=== PATIENT | female | born 1975 | race Caucasian/White ===

== ENCOUNTER 2019-08-19 12:37 | Outpatient (CLI) | payer SELFPAY ==
--- NOTE | 2019-08-19 12:47 | US_ITS ---
WS: [id number] ULTRASOUND PELVIS TECHNIQUE: Transabdominal and transvaginal. ULTRASOUND PELVIS TECHNIQUE: Transabdominal. CLINICAL INFORMATION: MENORRHAGIA, IRREGULAR MENSES COMPARISON: None. FINDINGS: Technically difficult examination due to uterine depth and position. Images are limited. Uterus Orientation: Retroflexed Size: 7.6 cm x 6.4 cm x 5.2 cm. Heterogeneous uterus with visualized fibroid measuring 1.5 x 1.5 x 1.0 cm Endometrium appears thickened but not well visualized. Adnexa: Right ovary size: 5.2 cm x 3.3 cm x 4.2 cm. Right ovary volume: 37.6 ccm3. Left ovary not seen Free fluid: None. Other findings: None. US/US pelvic with transvaginal IMPRESSION: 1. Difficult examination due to uterine depth and position. Uterus appears ret roflexed. 2. Endometrium appears thickened but difficult to visualize. This can be furth er evaluated with hysteroscopy. 3. Heterogeneous uterus with fibroid measuring 1.5 CM. 4. Right ovarian cyst measuring 1.6 x 2.7 x 2.7 cm. 5. Left ovary not well visualized.
== END 2019-08-19 12:38 | disposition home or self-care (01) ==
LOC: RAD 12:39
PROVIDERS: Family Provider Family Medicine; PCP Nurse Practitioner Family; Visit Provider Nurse Practitioner Family
DX: N92.0 Excessive and frequent menstruation with regular cycle (principal); N92.6 Irregular menstruation, unspecified; D25.9 Leiomyoma of uterus, unspecified; N83.201 Unspecified ovarian cyst, right side
CPT/HCPCS: 76830; 76856

== ENCOUNTER 2019-08-19 13:20 | Emergency (ER) | payer SELFPAY ==
[2019-08-19 13:34] VITALS: BP 173/69; PULSE 108; RESP 18; TEMP 36.9; O2SAT 100; BMI 43.9
--- NOTE | 2019-08-19 13:38 | XR_ITS ---
WS: [id number] SHOULDER RIGHT TECHNIQUE: 3 views of the right shoulder CLINICAL INFORMATION: pain COMPARISON: None. FINDINGS: Hypertrophic changes AC joint. Distal clavicle is intact. Several calcified loose bodies along the do rsal lateral glenohumeral joint and subcoracoid recess. No acute fractures. IMPRESSION: 1. 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 No acute fractures. 2. Several intra-articular calcified loose bodies along the lateral glenohumeral joint and subcoraco id recess.
--- NOTE | 2019-08-19 13:38 | ED_ITS ---
HPI - Extremity Injury (Upper) General: Chief Complaint: Extremity Injury, Upper Stated Complaint: shoulder pain Time Seen by Provider: 08/19/19 13:36 Source: patient Mode of arrival: ambulatory Limitations: no limitations History of Present Illness: HPI narrative: 43-year-old female who states she has had a history of right shoulder pain in the past that was improved with ster oids. She states that starting Monday she started having pain again that is sharp in nature and worse with movement of her arm. Is over the lateral portion of her shoulder. She denies any injuries. States her pain currently is a 3 out of 10. complaint: injury to: right Onset (ago): day(s) Other Extremity Injury: Right: shoulder Other injuries: none Severity: mild Relieving factors: immobilization Exacerbating factors: movement of extremity Review of Systems Const: Denies: fever, chills, body aches or change in appetite Eyes: Denies: blurry vision or eye discomfort ENMT: Denies: throat pain or dental pain Card: Denies: chest pain Resp: Denies: shortness of breath GI: Denies: abdominal pain, nausea, vomiting or diarrhea : Denies: painful urination Musc: Reports: joint pain Skin/Breast: Denies: rash Neuro: Denies: headache Psych: Denies: depression Lonnie/Lymph: Denies: easy bruising All/Imm: Denies: hives PFSH ED PFSH: Family History Grandfather Cancer Colon Social History Smoking and tobacco status: current every day smoker Physical Exam Const: COMMON NORMALS: no apparent distress, oriented x3 and healthy appearing HENMT: COMMON NORMALS: normocephalic and head/scalp atraumatic HEAD & SCALP: normocephalic and atraumatic Eye: COMMON NORMALS: PERRL and EOMs intact bilaterally PUPIL: Yes PERRL Neck/C-Spine: COMMON NORMALS: full ROM and supple Chest: COMMONS NORMALS: inspection of chest normal and palpation of chest normal Resp: COMMON NORMALS: normal respiratory effort, no retractions, no use of accessory muscles and clear to auscultation bilaterally AUSCULTATION: clear to auscultation bilaterally Cardio: COMMON NORMALS: regular rate, regular rhythm and no murmurs RATE: regular rate RHYTHM: regular rhythm GI: COMMON NORMALS: normal to inspection, nondistended, normoactive bowel sounds, soft to palpation, non-tender and no masses PALPATION: Yes soft Extremity: COMMON NORMALS: normal to inspection and full ROM NARRATIVE EX TREMITY EXAM: Full range of motion to right shoulder. She has slight pain of the lateral portion of her shoulder with movement. Distal pulses and sensations are intact Neuro: COMMON NORMALS: oriented x3, moves all extremities and no focal motor deficits Psych: COMMON NORMALS: mental status grossly normal, thought process normal and cooperative THOUGHT PROCESS: normal thought process Skin: COMMON NORMALS: no rashes or lesions noted and no wounds GENERAL SKIN EXAM: no rashes or lesions noted Course Vital Signs: Vital signs: Vital Signs Temperature 98.5 F 08/19/19 13:34 Pulse Rate 108 H 08/19/19 13:34 Respiratory Rate 18 08/19/19 13:34 Blood Pressure 173/69 08/19/19 13:34 Pulse Oximetry 100 08/19/19 13:34 MDM - Extremity Injury (Upper) MDM Narrative: Medical decision making narrative: Patient presents with a right shoulder strain. X-ray shows no fracture. We will place her on Naprosyn and Robaxin. She has no signs of serious injury and is stable for discharge. Imaging Data^: xr shoulder: Attestation: I personally reviewed and interpreted this imaging study as follows: My impression: no acute abnormality Discharge Plan Discharge Patient Disposition: Home, Self-Care Clinical Impression: Sprain of right shoulder Qualifiers: Encounter type: initial encounter Shoulder sprain type: unspecified sprain Qualified Code(s): S43.401A - Unspecified sprain of right shoulder joint, init ial encounter Condition: Stable Prescriptions: New Robaxin-750 750 mg tablet 750 mg PO Q6H Qty: 30 RF: 0 EC-Naprosyn 500 mg tablet,delayed release (DR/EC) 500 mg PO BID PRN (Reason: pain) Qty: 20 RF: 0 No Action omeprazole 20 mg capsule,delayed release(DR/EC) 20 mg PO QDAY RF: 0 Discharge Orders: Discharge Order (Routine); Ordered 08/19/19 Ordered By: Susannah Camacho Referrals: BERTIN SOFIA, LEAD PROJECT ENGINEER [Primary Care Provider] - Evelyn Faith DO [Family Provider] - 4-7 days Discharge Diet: Advance as tolerated Discharge Activity: Resume usual activity Patient Instructions: Shoulder Sprain (ED) Coding Level of Care Code 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
[2019-08-19] MEDS: dexamethasone 10 mg/mL INJ IM (13:55)
[2019-08-19 13:56] VITALS: RESP 15
[2019-08-19 14:34] VITALS: PULSE 91; RESP 16; O2SAT 98
== END 2019-08-19 14:35 | disposition home or self-care (01) ==
PROVIDERS: Emergency Provider Emergency Medicine; Family Provider Family Medicine; PCP Nurse Practitioner Family
DX: S43.401A Unspecified sprain of right shoulder joint, initial encounter (principal); X58.XXXA Exposure to other specified factors, initial encounter; F17.210 Nicotine dependence, cigarettes, uncomplicated
CPT/HCPCS: 12345; 73030; 96372; 99281; 99283; J1100

== ENCOUNTER → 2019-08-27 08:40 | Outpatient (BNVA) | payer SELFPAY | PROVIDERS: Family Provider Family Medicine; PCP Nurse Practitioner Family; Visit Provider Obstetrics & Gynecology | DX: N93.8 Other specified abnormal uterine and vaginal bleeding (principal) | CPT/HCPCS: 83001; 84443; 84703; 85025 ==

== ENCOUNTER → 2019-09-09 12:54 | Outpatient (BNVA) | payer SELFPAY | PROVIDERS: Family Provider Family Medicine; PCP Nurse Practitioner Family; Referring Provider Nurse Practitioner Family; Visit Provider Nurse Practitioner Family | DX: M25.531 Pain in right wrist (principal); M11.231 Other chondrocalcinosis, right wrist | CPT/HCPCS: 73110 ==

== ENCOUNTER 2019-09-25 07:05 | Day surgery (SDC) | payer SELFPAY ==
[2019-09-24 11:43] LABS: OR HCG Qualitative Urine Negative (Negative)
--- NOTE | 2019-09-24 11:55 | P.ANESASSM_ITS ---
Pre-Anesthetic Assessment Pre-Anesthetic Assessment: Height/Weight: Height 1.47 m Weight 93.894 kg Preop Diagnosis: Abnormal uterine bleeding Proposed Procedure: Operation Date: 09/25/19 07:00 Proposed Procedures p Hysteroscopy 97960 76403 N93.9(Not Applicable) - Dany Black MD s Dilation And Curettage (D&C)(Not Applicable) - Dany Black MD Social: Social History: Tobacco and No alcohol Exam: Pre-Anes Outpt Exam: alert, oriented x 3, clear to auscultation bilaterally and regular rate & rhythm Airway: Submandibular: WNL Cervical ROM: WNL MP: 3 Dentition: Other ( very poor dentation) History/ROS: No significant history except as noted Pulmonary: Pulmonary: None reported CV/HEM: CV/HEM: None reported : : None reported Hepatic: Hepatic: None reported GI: GI: GERD Metabolic: Metabolic: Hyperlipidemia and Morbid obesity Neuropsych: Neuropsych: None reported Anesthetic Plan: ASA status: 3 Anesthesia: Anesthesia Evaluation and General Risk of > 500 ml blood loss (7ml/kg in children): No PFSH Anesthesia PFSH: Medical History Abnormal uterine bleeding (AUB) Right ovarian cyst Family History Grandfather Cancer Colon maternal Mother Hypertension Dementia Social History (Updated 09/24/19 @ 08:51 by Brooke Chopra RN) Smoking and tobacco status: current every day smoker cigarettes Packs smoked per day: 1 Years cigarettes smoked: 30 Alcohol intake: never Substance/Drug Use: never Female Reproductive History: Date of last menstrual period: 07/22/19 Data Anesthesia Other Labs: Laboratory Results - last 48 hr 09/24/19 11:42 Urine HCG, Qual Negative Cardiac Studies: No Data to Display
[2019-09-24 11:57] LABS: Basophils # 0.1 10^3/uL (0.0-0.1); Basophils % 0.4 %; Eosinophils % 0.3 %; Hematocrit 36.9 % (37.0-47.0); Lymphocytes # 2.8 10^3/uL (0.8-4.8); Lymphocytes % 19.1 %; Mean Corpuscular HGB Conc 27.1 g/dL (30.0-36.0); Mean Corpuscular Hemoglobin 18.2 pg (28.0-34.0); Mean Corpuscular Volume 67.2 fL (81-99); Mean Platelet Volume 9.5 fL (7.4-10.4); Monocytes # 0.7 10^3/uL (0.2-0.9); Monocytes % 4.7 %; Neutrophils # 10.9 10^3/uL (1.8-7.7); Nucleated Red Blood Cells % 0 %; Platelet Count 383 10^3/cmm (130-400); Red Blood Count 5.49 10^6/uL (4.1-5.3); Red Cell Distribution Width 17.2 % (12.1-15.1); White Blood Count 14.5 10^3/uL (4.0-10.0)
[2019-09-24 12:12] LABS: Anion Gap 17.9 (5-19); Blood Urea Nitrogen 8 mg/dL (6-20); Calcium 8.8 mg/dL (8.5-10.5); Carbon Dioxide 24 mmol/L (22-29); Chloride 101 mmol/L (98-107); Glomerular Filtration Rate 107.6 mL/min (90-130); Glucose 131 mg/dL (65-115); Osmolality Calculated 286 mOsm/kg (285-295); Potassium 3.9 mmol/L (3.5-5.1); Sodium 139 mmol/L (136-145)
[2019-09-24 12:56] LABS: Add Urine Microscopic? YES; Bilirubin Urine Neg (NEGATIVE); Blood Urine Neg (Negative); Glucose Urine UA Norm (Normal); Ketones Urine Negative (Negative); Leukocyte Esterase Urine Negative (Negative); Nitrate Urine Negative (Negative); Protein Urine Neg (Negative); Specific Gravity, Urine 1.025 (1.005-1.030); Urine Appearance Hazy (CLEAR); Urine Color Yellow (Yellow); Urobilinogen Urine Norm (Negative); pH Urine 5 (5-7)
[2019-09-24 12:57] LABS: Calcium Oxalate Crystals Urine 40-55 /hpf; WBC Urine 0-4 /hpf (0-5)
[2019-09-24 12:58] LABS: Add Urine Culture? No; Bacteria Urine TRACE
[2019-09-25 07:25] VITALS: BP 129/63; PULSE 82; RESP 18; TEMP 36.8; O2SAT 96
[2019-09-25] MEDS: sodium chloride 0.9% 1,000 ML 30 ML IV (07:33)
--- NOTE | 2019-09-25 08:02 | W.PM.OPSUD ---
Surgery/Procedure H&P Update DATE OF PROCEDURE: September 25, 2019 DATE H&P PERFORMED: 09/24/19 H&P UPDATE INFORMATION: I have reviewed H&P completed within last 30 days, I have examined patient prior to procedure and No changes to prior documentation PREOP DIAGNOSIS: Abnormal uterine bleeding PLANNED PROCEDURE: Operation Date: 09/25/19 08:30 Proposed Procedures p Hysteroscopy 58231 [id number] N93.9(Not Applicable) - Dany Black MD s Dilation And Curettage (D&C)(Not Applicable) - Dany Black MD
--- NOTE | 2019-09-25 08:59 | PM.OP ---
Operative Report Date of procedure: September 25, 2019 Pre-op Diagnosis: Abnormal uterine bleeding Post-op diagnosis: same Post-op Findings: proliferative endometrium Specimens removed/disposition: Endocervical curettings. Endometrial curettings Surgeon: Dany Black Anesthesia: MAC Estimated blood loss (mL): 10 IV fluids (mL): 700 Urine output (mL): 30 Findings: disorder endometrium Condition: stable Disposition: PACU Brief History: 44-year-old female with abnormal uterine bleeding unresponsive to medical management Procedure: After informed consent, the risks included but were not limited to bleeding, infection, injury to internal organs. The patient was counseled on a possible laparotomy and on the potential need for hysterectomy. The patient expressed understanding of the risks involved, all questions were answered, and the patient consented to the procedure. The patient was taken to the operating room where general anesthesia was administered. She was placed in the dorsal lithotomy position and prepped and draped in sterile fashion. A time out procedure was performed. The patient was examined under anesthesia and found to have a normal uterus with normal adnexa. A sterile speculum was placed in the vagina, and the anterior lip of cervix was grasped with the single toothed tenaculum. The uterus was then gently sounded to 9 cm, and the cervix was dilated with cervical dilators. A 2.7-cm hysteroscope advanced gently to the uterine fundus while visualizing the monitor. Survey of the uterine cavity showed: fundus normal proliferative endometrium; left ostium, and lateral wall with atrophic endometrium; right ostium, and lateral wall with atrophic endometrium; anterior hall with proliferative endometrium and posterior wall with atrophic endometrium; endocervical canal is normal. The curette was advanced gently to the uterine fundus rotated to clear the uterus. The curettage was then performed until a gritty texture was noted. Hysteroscopy was reinserted. There was minimal bleeding noted and the tenaculum removed with goad hemostasis noted. The patient tolerated the procedure well. The patient was taken to the recovery area in stable condition.
[2019-09-25 09:02] VITALS: BP 147/65; PULSE 82; RESP 27; TEMP 37.1; O2SAT 100
[2019-09-25 09:05] VITALS: BP 135/67; PULSE 84; RESP 22; O2SAT 100
[2019-09-25 09:10] VITALS: BP 144/77; PULSE 80; RESP 16; O2SAT 100
[2019-09-25 09:15] VITALS: BP 131/60; PULSE 81; RESP 18; TEMP 37.1; O2SAT 98
[2019-09-25 09:25] VITALS: BP 131/74; PULSE 81; RESP 18; TEMP 36.9; O2SAT 99
[2019-09-25] MEDS: ibuprofen 600 mg Tablet PO (09:35)
== END 2019-09-25 09:46 | disposition home or self-care (01) ==
PROVIDERS: PCP Nurse Practitioner Family; Visit Provider Obstetrics & Gynecology
PROC: 0UJD8ZZ Inspection of Uterus and Cervix, Via Natural or Artificial Opening Endoscopic (ICD-10-PCS; CPT 58555; principal; 2019-09-25 08:30)
PROC: (CPT 58120; 2019-09-25 08:30)
DX: N93.9 Abnormal uterine and vaginal bleeding, unspecified (principal); K21.9 Gastro-esophageal reflux disease without esophagitis; E78.5 Hyperlipidemia, unspecified; E66.01 Morbid (severe) obesity due to excess calories; Z68.41 Body mass index [BMI] 40.0-44.9, adult; F17.210 Nicotine dependence, cigarettes, uncomplicated
CPT/HCPCS: 58558; 12345; 36415; 80048; 81001; 81025; 84703; 85025; 87086; 88305; J0690; J1100; J1885; J2001; J2405; J2704; J3010; J7030

== ENCOUNTER 2021-05-18 18:59 | Emergency (ER) | payer SELFPAY ==
[2021-05-18 19:32] VITALS: BP 174/90; PULSE 79; RESP 17; TEMP 36.6; O2SAT 97; BMI 43.9
--- NOTE | 2021-05-18 19:42 | XRR_ITS ---
PROCEDURE INFORMATION: Exam: XR Chest Exam date and time: 05/18/2021 7:42 PM Age: 45 years old Clinical indication: Other: Weakness TECHNIQUE: Imaging protocol: XR of the chest. Views: 1 view. COMPARISON: CR Chest 1 [place] [id number] 10/11/2014 7:53 AM FINDINGS: Lungs: Unremarkable. No consolidation. Pleural spaces: Unremarkable. No pleural effusion. No pneumothorax. Heart/Mediastinum: Unremarkable. No cardiomegaly. Bones/joints: Unremarkable. XR/XR chest 1V portable [id number] IMPRESSION: No acute findings.
--- NOTE | 2021-05-18 21:28 | ECG_ITS ---
[facility] Test Date: 2021-05-18 Pat Name: Loni Suarez Department: Room: Gender: Female Big 6 Dealer: : 1975 Requested By: Susannah Camacho Order Number: [id number] Oliver MD: Shilpa Reed M.D. Measurements Intervals [place] Rate: 76 P: 59 [place]: 171 QRS: 51 QRSD: 79 T: 46 QT: 396 QTc: 447 Interpretive Statements SINUS RHYTHM No previous ECG available for comparison Electronically Signed On 05-19-2021 17:45:05 CENTRAL OFFICE TROUBLE SHOOTER by Shilpa Reed M.D. [id number]
[2021-05-18 21:37] LABS: Basophils # 0.1 10^3/uL (0.0-0.1); Basophils % 0.6 %; Eosinophils # 0.2 10^3/uL (0.0-0.8); Eosinophils % 1.5 %; Hematocrit 32.2 % (37.0-47.0); Hemoglobin 8.3 g/dL (11.5-15.3); Lymphocytes # 3.8 10^3/uL (0.8-4.8); Lymphocytes % 27.2 %; Mean Corpuscular HGB Conc 25.8 g/dL (30.0-36.0); Mean Corpuscular Hemoglobin 15.9 pg (28.0-34.0); Mean Corpuscular Volume 61.6 fl (81-99); Monocytes # 0.7 10^3/uL (0.2-0.9); Neutrophils # 8.92 10^3/uL (1.8-7.7); Neutrophils % 64.7 %; Nucleated Red Blood Cells % 0.1 %; Platelet Count 340 10^3/cmm (130-400); Red Blood Count 5.23 10^6/uL (4.1-5.3); Red Cell Distribution Width 21.3 % (12.1-15.1); White Blood Count 13.8 10^3/uL (4.0-10.0)
--- NOTE | 2021-05-18 21:39 | CTR_ITS ---
PROCEDURE INFORMATION: Exam: CT Head Without Contrast Exam date and time: 05/18/2021 9:39 PM Age: 45 years old Clinical indication: Patient HX: C/O dizziness. ; Additional info: Dizzy TECHNIQUE: Imaging protocol: Computed tomography of the head without contrast. Radiation optimization: All CT scans at this facility use at least one of these dose optimization techniques: automated exposure control; mA and/or kV adjustment per patient size (includes targeted exams where dose is matched to clinical indication); or iterative reconstruction. COMPARISON: No relevant prior studies available. RADIATION DOSE METRICS: Total DLP (mGy-cm): 837.61 FINDINGS: Brain: Normal. No hemorrhage. Unremarkable white matter. No mass effect. Cerebral ventricles: No ventriculomegaly. Paranasal sinuses: Visualized sinuses are unremarkable. No fluid levels. Mastoid air cells: Visualized mastoid air cells are well aerated. Bones/joints: Unremarkable. No acute fracture. Soft tissues: Unremarkable. CT/CT head wo con* [id number] IMPRESSION: No acute intracranial abnormality.
--- NOTE | 2021-05-18 21:56 | W.ED.GENADLT ---
HPI - General Adult General: Chief complaint: General Medical Stated complaint: hard to balance, shaky Time Seen by Provider: 05/18/21 21:24 Source: patient Mode of arrival: ambulatory Limitations: no limitations History of Present Illness: HPI narrative: 45-year-old female states that she been having dizziness throughout the day. States that time she feels like she is going to fall over and is felt weak and thirsty. She denies any focal deficits no weakness one-sided denies any change in vision states it seems to be worse with walking. She denies any headache denies any head injury denies any chest pain. Associated symptoms: Deny chest pain, dyspnea, headache(s), nausea, rash or vomiting Review of Systems Const: Denies: fever(s), chills, body aches or change in appetite Eyes: Denies: blurry vision or eye discomfort ENMT: Denies: throat pain or dental pain Card: Denies: chest pain Resp: Denies: dyspnea GI: Denies: abdominal pain, nausea, vomiting or diarrhea : Denies: dysuria Musc: Denies: neck pain or back pain Skin/Breast: Denies: rash Neuro: Denies: headache(s) Psych: Denies: depression Lonnie/Lymph: Denies: easy bruising All/Imm: Denies: urticaria PFSH ED PFSH: Medical History Abnormal uterine bleeding (AUB) Right ovarian cyst Family History Grandfather Cancer Colon maternal Mother Hypertension Dementia Social History Smoking and tobacco status: current every day smoker cigarettes Packs smoked per day: 1 Years cigarettes smoked: 30 Alcohol intake: never Female Reproductive History: Date of last menstrual period: 04/19/21 Physical Exam Const: COMMON NORMALS: no acute distress, patient oriented x3 and healthy appearing HENMT: COMMON NORMALS: normocephalic and atraumatic HEAD & SCALP: normocephalic and atraumatic Eye: COMMON NORMALS: Equal, round and reactive pupils present and EOMs intact bilaterally PUPIL: Yes Equal, round and reactive pupils present Neck/C-Spine: COMMON NORMALS: full ROM and supple Chest: COMMONS NORMALS: normal inspection of the chest and normal palpation of entire chest wall Resp: COMMON NORMALS: normal respiratory effort, No retractions, No use of accessory muscles and clear to auscultation bilaterally AUSCULTATION: clear to auscultation bilaterally Cardio: COMMON NORMALS: regular rate, regular rhythm and No murmurs present (Cardio) RATE: regular rate RHYTHM: regular rhythm GI: COMMON NORMALS: Normal to inspection, nondistended, normoactive bowel sounds present, Soft to palpation, non-tender and no masses PALPATION: Yes Soft to palpation Extremity: COMMON NORMALS: normal to inspection and full ROM Neuro: COMMON NORMALS: patient oriented x3, moves all extremities and no focal motor deficits Psych: COMMON NORMALS: mental status grossly normal, Normal thought process present and cooperative THOUGHT PROCESS: Normal thought process present Skin: COMMON NORMALS: no rashes or lesions noted and no wounds GENERAL SKIN EXAM: no rashes or lesions noted Course Vital Signs: Vital signs: Vital Signs Temperature 98 F 05/18/21 19:32 Pulse Rate 80 05/18/21 22:18 Respiratory Rate 18 05/18/21 22:18 Blood Pressure 153/68 05/18/21 22:18 Pulse Oximetry 98 05/18/21 22:18 MDM - General Adult MDM Narrative: Medical decision making narrative: Patient presents here with dizziness that is resolved here with meclizine blood work CT head are all normal no signs of acute stroke patient is ambulatory here without any difficulty patient is stable for discharge and is to follow-up PCP and return if worsening. Lab Data: Labs: Lab Results 05/18/21 05/18/21 05/18/21 21:30 21:30 22:10 WBC 13.8 10^3/uL H 10 ^3/uL (4.0-10.0) RBC 5.23 10^6/uL 10^6 /uL (4.1-5.3) Hgb 8.3 g/dL L g/dL (11.5-15.3) Hct 32.2 % L % (37.0-47.0) MCV 61.6 fl L fl (81-99) MCH 15.9 pg L pg (28.0-34.0) MCHC 25.8 g/dL L g/dL (30.0-36.0) RDW 21.3 % H % (12.1-15.1) Plt Count 340 10^3/cmm 10^3 /cmm (130-400) MPV 9.0 fL fL (7.4-10.4) Neut % (Auto) 64.7 % % Lymph % (Auto) 27.2 % % [place] % (Auto) 5.0 % % Eos % (Auto) 1.5 % % Baso % (Auto) 0.6 % % Neut # (Auto) 8.92 10^3/uL H 10 ^3/uL (1.8-7.7) Lymph # (Auto) 3.8 10^3/uL 10^3/ uL (0.8-4.8) [place] # (Auto) 0.7 10^3/uL 10^3/ uL (0.2-0.9) Eos # (Auto) 0.2 10^3/uL 10^3/ uL (0.0-0.8) Baso # (Auto) 0.1 10^3/uL 10^3/ uL (0.0-0.1) Nucleated RBC % (a uto) 0.1 % % Nucleated RBCs # 0.0 /100WBC /100W BC Sodium 138 mmol/L mmol/L (136-145) Potassium 4.1 mmol/L mmol/L (3.5-5.1) Chloride 104 mmol/L mmol/L (98-107) Carbon Dioxide 23 mmol/L mmol/L (22-29) Anion Gap 15.1 (5-19) BUN 9 mg/dL mg/dL (6-20) Creatinine 0.5 mg/dL mg/dL (0.5-0.9) GFR Calculation 132.2 mL/min H mL /min (90-130) Glucose 86 mg/dL mg/dL (65-115) POC Glucose Calculated Osmolal ity 284 mOsm/kg L mOs m/kg (285-295) Calcium 8.2 mg/dL L mg/dL (8.5-10.5) Total Bilirubin 0.2 mg/dL mg/dL (0.15-1.2) AST 11 U/L U/L (0-32) ALT 10 U/L U/L (0-33) Alkaline Phosphata se 85 IU/L IU/L (35-105) Total Protein 6.7 g/dL g/dL (6.6-8.7) Albumin 3.9 g/dL g/dL (3.5-5.2) Globulin 2.8 g/dL g/dL (1.3-4.6) Urine Color Yellow (Yellow) Urine Appearance Clear (CLEAR) Urine pH 5 (5-7) Ur Specific Gravit y 1.025 (1.005-1.030) Urine Protein Neg (Negative) Urine Glucose (UA) Norm (Normal) Urine Ketones Negative (Negative) Urine Blood Neg (Negative) Urine Nitrate Negative (Negative) Urine Bilirubin Neg (Negative) Urine Urobilinogen Norm mg/dL mg/dL (Negative) Ur Leukocyte Laura ase Negative (Negative) 05/18/21 22:12 WBC RBC Hgb Hct MCV MCH MCHC RDW Plt Count MPV Neut % (Auto) Lymph % (Auto) [place] % (Auto) Eos % (Auto) Baso % (Auto) Neut # (Auto) Lymph # (Auto) [place] # (Auto) Eos # (Auto) Baso # (Auto) Nucleated RBC % (a uto) Nucleated RBCs # Sodium Potassium Chloride Carbon Dioxide Anion Gap BUN Creatinine GFR Calculation Glucose POC Glucose 98 mg/dL mg/dL (70-110) Calculated Osmolal ity Calcium Total Bilirubin AST ALT Alkaline Phosphata se Total Protein Albumin Globulin Urine Color Urine Appearance Urine pH Ur Specific Gravit y Urine Protein Urine Glucose (UA) Urine Ketones Urine Blood Urine Nitrate Urine Bilirubin Urine Urobilinogen Ur Leukocyte Laura ase Imaging Data^: CT Head: Attestation: I personally reviewed and interpreted this imaging study as follows: Radiologist's impression: No acute intracranial abnormality. EKG Data^: EKG 1: Attestation: I personally reviewed and interpreted this EKG as follows: EKG interpretation date: 05/18/21 EKG interpretation time: 22:17 Interpretation: nsr hr [address] or t wave abnormalities qrs 79 qtc 427 Computer generated interpretation: Chest X-Ray 05/18/21 19:42 IMPRESSION: No acute findings. Head CT 05/18/21 21:39 IMPRESSION: No acute intracranial abnormality. Discharge Plan Discharge Patient Disposition: Home Clinical Impression: Dizziness Condition: Stable Prescriptions: New meclizine 25 mg tablet 25 mg PO TID PRN (Reason: dizziness) Qty: 20 RF: 0 No Action [id number] 3.5-10,000-1 mg/mL-unit/mL-% solution 4 drp otic (ear) Q8H 7 Days Qty: 10 RF: 0 omeprazole 20 mg capsule,delayed release(DR/EC) 20 mg PO QDAY RF: 0 Discharge Orders: Discharge ED (Routine); Ordered 05/18/21 Ordered By: Susannah Camacho Referrals: Yaquelin Malik, INDUSTRIAL SALES ENGINEER [Primary Care Provider] - 1-3 days Discharge Diet: Advance as tolerated Discharge Activity: Resume usual activity Patient Instructions: Dizziness (ED) Coding Level of Care Code ED Central Processing Technician for Chg Fwd Exam Comprehensive
[2021-05-18 21:59] LABS: Alanine Aminotransferase 10 U/L (0-33); Albumin Level 3.9 g/dL (3.5-5.2); Alkaline Phosphatase 85 IU/L (35-105); Anion Gap 15.1 (5-19); Aspartate Amino Transferase 11 U/L (0-32); Blood Urea Nitrogen 9 mg/dL (6-20); Calcium 8.2 mg/dL (8.5-10.5); Carbon Dioxide 23 mmol/L (22-29); Chloride 104 mmol/L (98-107); Globulin 2.8 g/dL (1.3-4.6); Glomerular Filtration Rate 132.2 mL/min (90-130); Glucose 86 mg/dL (65-115); Osmolality Calculated 284 mOsm/kg (285-295); Potassium 4.1 mmol/L (3.5-5.1); Sodium 138 mmol/L (136-145); Total Bilirubin 0.2 mg/dL (0.15-1.2); Total Protein 6.7 g/dL (6.6-8.7)
[2021-05-18] MEDS: meclizine 25 mg tablet 50 MG PO (22:13)
[2021-05-18 22:18] VITALS: BP 153/68; PULSE 80; RESP 18; O2SAT 98
[2021-05-18 22:22] LABS: Glucose Point of Care 98 mg/dL (70-110)
[2021-05-18 22:23] LABS: Add Urine Microscopic? NO; Charge for UA Resulting for Rev
[2021-05-18 22:27] LABS: Bilirubin Urine Neg (Negative); Blood Urine Neg (Negative); Glucose Urine UA Norm (Normal); Ketones Urine Negative (Negative); Leukocyte Esterase Urine Negative (Negative); Nitrate Urine Negative (Negative); Protein Urine Neg (Negative); Specific Gravity, Urine 1.025 (1.005-1.030); Urine Appearance Clear (CLEAR); Urine Color Yellow (Yellow); Urobilinogen Urine Norm (Negative); pH Urine 5 (5-7)
[2021-05-18 23:19] VITALS: BP 148/72; PULSE 81; RESP 18; TEMP 37.1; O2SAT 99
== END 2021-05-18 23:20 | disposition home or self-care (01) ==
PROVIDERS: Physician Assistant; Emergency Provider Emergency Medicine; PCP Nurse Practitioner Family
DX: R42 Dizziness and giddiness (principal); F17.210 Nicotine dependence, cigarettes, uncomplicated
CPT/HCPCS: 36416; 70450; 71045; 80053; 81003; 82962; 85025; 93005; 99283; J8597

== ENCOUNTER → 2022-08-31 13:36 | Outpatient (BNVA) | payer MEDICAID, SELFPAY | PROVIDERS: PCP Nurse Practitioner Family; Visit Provider Nurse Practitioner Family | DX: M25.531 Pain in right wrist (principal) | CPT/HCPCS: 73110; 80053; 80061; 82306; 83036; 83721; 84443 ==

== ENCOUNTER 2023-07-03 09:46 | Outpatient (CLI) | payer OTHER, SELFPAY ==
--- NOTE | 2023-07-03 09:30 | US_ITS ---
WS: [id number] INDICATION: Palpable area RIGHT forearm TECHNIQUE: Ultrasound palpable area RIGHT forearm. FINDINGS: Normal underlying subcutaneous soft tissue. No cystic or solid lesions. No suspicious findi ngs in the area of concern. IMPRESSION: No suspicious findings in the area of concern.
--- NOTE | 2023-07-03 10:15 | USCV_ITS ---
Loni Suarez Age: 47 Gender: F : 1975 Exam Date: 07/03/2023 09:13 Ordering Phys: Jacque Miller MEAT AND SEAFOOD MANAGER MEAT AND SEAFOOD MANAGER Technologist: CT [place] [facility] [place]: murmur BP: 110 / 80 HR: Rhythm: Sinus Technical Quality: Adequate MEASUREMENTS (Male / Female) Normal Values 2D ECHO LVOT Diameter 2.0 cm LV Ejection Fraction MOD 2C 62.6 % LV Ejection Fraction 2C AL 0.0 % LA Diameter 4.2 cm Aorta at Sinotubular Diameter 2.0 cm M-MODE LA Ao Ratio MM 2.0 AV Cusp Separation MM 1.8 cm DOPPLER AV Peak Velocity 150.0 cm/s LVOT Peak Velocity 166.0 cm/s AV Area Cont Eq vti 3.9 cm squared AV Area Cont Eq pk 3.3 cm squared MV Peak Velocity 90.0 cm/s MV Area PHT 4.2 cm squared Mitral E to A Ratio 1.1 TR Peak Velocity 133.0 cm/s TR Peak Gradient 7.1 mmHg Right Atrial Pressure 3.0 mmHg Pulmonary Artery Systolic Pressu 10.1 mmHg PV Peak Velocity 166.0 cm/s FINDINGS Left Ventricle Normal left ventricular size and systolic function, EF 62%.no regional wall motion abnormalities. Right Ventricle Normal right ventricular size and systolic function. Right Atrium Normal right atrial size. Left Atrium Normal left atrial size. Mitral Valve No gross abnormalities noted Aortic Valve No gross abnormalities noted Tricuspid Valve No gross abnormalities noted Pulmonic Valve No gross abnormalities noted Pericardium Normal pericardium without effusion. Aorta Normal ascending aorta dimension. IVC The inferior vena cava appears normal. CONCLUSIONS Normal left ventricular size and systolic function, EF 62%.no regional wall motion abnormalities. Normal cardiac chamber sizes. No significant valvular abnormalities There is no pericardial effusion. There are no intracardiac masses. No similar previous studies are available for comparison Dr Shilpa Reed MD [facility] (Electronically Signed) Final Date: 04 July 2023 15:04 S
== END 2023-07-03 09:47 | disposition home or self-care (01) ==
LOC: RAD 09:47
PROVIDERS: PCP Nurse Practitioner Family; Visit Provider Nurse Practitioner Family
DX: R22.30 Localized swelling, mass and lump, unspecified upper limb (principal); R01.1 Cardiac murmur, unspecified
CPT/HCPCS: 76882; 93306

== ENCOUNTER → 2024-07-02 12:54 | Outpatient (BNVA) | payer OTHER, SELFPAY | PROVIDERS: PCP Nurse Practitioner Family; Visit Provider Nurse Practitioner Family | DX: E11.9 Type 2 diabetes mellitus without complications (principal); R73.9 Hyperglycemia, unspecified | CPT/HCPCS: 80053; 80061; 82043; 83036; 83721; 84443; 85025 ==

== ENCOUNTER → 2024-07-16 14:22 | Outpatient (BNVA) | payer OTHER, SELFPAY | PROVIDERS: PCP Nurse Practitioner Family; Visit Provider Nurse Practitioner Family | DX: E11.9 Type 2 diabetes mellitus without complications (principal) | CPT/HCPCS: 80053; 85025 ==

== ENCOUNTER → 2024-07-30 10:26 | Outpatient (BNVA) | payer OTHER, SELFPAY | PROVIDERS: PCP Nurse Practitioner Family; Visit Provider Nurse Practitioner Family | DX: R79.89 Other specified abnormal findings of blood chemistry (principal); D64.9 Anemia, unspecified | CPT/HCPCS: 80053; 82607; 82728; 82746; 83550; 85025; 86705; 86706; 86709; 86803; 87340 ==

== ENCOUNTER → 2024-08-05 16:26 | Outpatient (BNVA) | payer OTHER, SELFPAY | PROVIDERS: PCP Nurse Practitioner Family; Visit Provider Nurse Practitioner Family | DX: D64.9 Anemia, unspecified (principal) | CPT/HCPCS: 82270 ==

== ENCOUNTER → 2024-08-21 12:31 | Outpatient (BNVA) | payer OTHER, SELFPAY | PROVIDERS: PCP Nurse Practitioner Family; Visit Provider Nurse Practitioner Family | DX: D64.9 Anemia, unspecified (principal) | CPT/HCPCS: 85007; 85027 ==

== ENCOUNTER → 2024-09-11 13:20 | Outpatient (BNVA) | payer OTHER, SELFPAY | PROVIDERS: PCP Nurse Practitioner Family; Visit Provider Nurse Practitioner Family | DX: D72.829 Elevated white blood cell count, unspecified (principal) | CPT/HCPCS: 80503; 85025 ==

== ENCOUNTER → 2024-10-02 14:30 | Outpatient (BNVA) | payer OTHER, SELFPAY | PROVIDERS: PCP Nurse Practitioner Family; Visit Provider Nurse Practitioner Family | DX: E11.9 Type 2 diabetes mellitus without complications (principal) | CPT/HCPCS: 80053; 80061; 83036; 84146; 85025 ==

== ENCOUNTER 2024-10-03 10:07 | Oncology outpatient (recurring) (ONCR) | payer OTHER, SELFPAY | END 2024-10-28 23:59 | disposition home or self-care (01) | PROVIDERS: PCP Nurse Practitioner Family; Visit Provider Internal Medicine | DX: Z53.9 Procedure and treatment not carried out, unspecified reason (principal) | CPT/HCPCS: 36415 ==

== ENCOUNTER → 2024-10-07 13:40 | Outpatient (BNVA) | payer OTHER, SELFPAY | PROVIDERS: PCP Nurse Practitioner Family; Visit Provider Nurse Practitioner Family | DX: E11.9 Type 2 diabetes mellitus without complications (principal); D50.9 Iron deficiency anemia, unspecified | CPT/HCPCS: 80053; 82728; 82746; 83036; 83550; 85025 ==

== ENCOUNTER 2024-11-04 14:45 | Oncology outpatient (recurring) (ONCR) | payer OTHER, SELFPAY ==
--- NOTE | 2024-10-29 09:00 | US_ITS ---
WS: [id number] Complete ABDOMINAL ULTRASOUND HISTORY: hepatomegaly COMPARISON: None available. Liver: 20.3 cm in length. Moderately enlarged liver. No mass. No intrahepatic duct dilatation. Portal Vein: Normal hepatopetal flow with monophasic waveform. Gallbladder: Normally distended gallbladder with no stones or wall thickening. CBD: 0.3 cm Pancreas: Normal size and echogenicity. Right kidney: 11.7 cm x 4.4 x 4.6 cm. Cortex:1.0 cm. Normal size and echogenicity. No hydronephrosis or mass. Left kidney: 12.4 cm x 5.0 cm x 4.5 cm. Cortex: 1.0 cm. Normal size and echogenicity. No hydronephrosis or mass. Spleen: 11.5 cm. Normal size and echogenicity. Aorta and IVC: Unremarkable abdominal aorta and IVC. US/US abdomen complete* [id number] Impression: 1. Moderate hepatomegaly. 2. Normal gallbladder. 3. No renal obstruction.
== END 2024-11-28 23:59 | disposition home or self-care (01) ==
LOC: RAD 11-05 → ONCMED 11-05 07:12
PROVIDERS: PCP Nurse Practitioner Family; Visit Provider Internal Medicine
DX: R16.0 Hepatomegaly, not elsewhere classified (principal)
CPT/HCPCS: 76700

== ENCOUNTER → 2025-01-16 10:55 | Outpatient (BNVA) | payer OTHER, SELFPAY | PROVIDERS: PCP Nurse Practitioner Family; Visit Provider Nurse Practitioner Family | DX: D50.9 Iron deficiency anemia, unspecified (principal); E11.9 Type 2 diabetes mellitus without complications; E55.9 Vitamin D deficiency, unspecified; E66.9 Obesity, unspecified | CPT/HCPCS: 80053; 80061; 82306; 83036; 84443; 85025 ==

== ENCOUNTER 2025-01-22 10:11 | Oncology outpatient (recurring) (ONCR) | payer OTHER, SELFPAY ==
[2025-01-22 11:09] LABS: Hematocrit 40.3 % (36-47); Hemoglobin 11.90 g/dL (11.27-16.99); Mean Corpuscular HGB Conc 29.5 g/dL (30-55); Mean Corpuscular Hemoglobin 20.9 pg (27-33); Mean Corpuscular Volume 70.8 fl (85-98); Nucleated Red Blood Cells % 0 %; Platelet Count 339 10^3/cmm (157-399); Red Blood Count 5.69 10^6/uL (3.85-5.65); White Blood Count 12.28 10^3/uL (3.29-11.43)
[2025-01-22 12:40] LABS: Ferritin 15 ng/mL (15-150); Iron 19 ug/dL (37-145); Total Iron Binding Capacity 320 mcg/dl; Unsaturated Iron Binding 301 ug/dL (112-347)
== END 2025-01-28 23:59 | disposition home or self-care (01) ==
LOC: ONCMED 10:11
PROVIDERS: Internal Medicine; Nurse Practitioner; PCP Nurse Practitioner Family; Visit Provider Internal Medicine
DX: D50.9 Iron deficiency anemia, unspecified (principal)
CPT/HCPCS: 36415; 82728; 83540; 83550; 85025

== ENCOUNTER 2025-02-13 09:25 | Oncology outpatient (recurring) (ONCR) | payer OTHER, SELFPAY ==
[2025-02-13 10:05] LABS: Hematocrit 39.4 % (36-47); Hemoglobin 12.00 g/dL (11.27-16.99); Mean Corpuscular HGB Conc 30.5 g/dL (30-55); Mean Corpuscular Hemoglobin 21.5 pg (27-33); Mean Corpuscular Volume 70.6 fl (85-98); Nucleated Red Blood Cells % 0 %; Platelet Count 330 10^3/cmm (157-399); Red Blood Count 5.58 10^6/uL (3.85-5.65); White Blood Count 10.96 10^3/uL (3.29-11.43)
[2025-02-13 10:20] LABS: Alanine Aminotransferase 18 U/L (0-33); Albumin Level 4.0 g/dL (3.5-5.2); Alkaline Phosphatase 95 U/L (35-105); Anion Gap 18.0 (5-19); Aspartate Amino Transferase 14 U/L (0-32); Blood Urea Nitrogen 12 mg/dL (6-20); Calcium 9.2 mg/dL (8.5-10.5); Carbon Dioxide 25 mmol/L (22-29); Chloride 104 mmol/L (98-107); Creatinine Clr Calc Pharmacy 188.7278; Globulin 3.0 g/dL (1.3-4.6); Glucose 140 mg/dL (65-115); Osmolality Calculated 298 mOsm/kg (285-295); Potassium 4.0 mmol/L (3.5-5.1); Sodium 143 mmol/L (136-145); Total Protein 7.0 g/dL (6.6-8.7)
[2025-02-13] MEDS: diphenhydrAMINE 50 mg/mL SDV 1mL 25 MG IVP ×2 (11:21→13:08)
[2025-02-13 11:25] VITALS: BP 142/81; PULSE 72; RESP 17; TEMP 36.9; O2SAT 96
[2025-02-13] MEDS: iron dextran 900 MG in sodium chloride 0.9% 1,000 ML 250.75 MG IV (13:35)
[2025-02-13 17:37] VITALS: BP 150/82; PULSE 85; RESP 16; TEMP 36.9; O2SAT 94
== END 2025-02-28 23:59 | disposition home or self-care (01) ==
PROVIDERS: PCP Nurse Practitioner Family; Visit Provider Nurse Practitioner
DX: D50.9 Iron deficiency anemia, unspecified (principal); Z79.52 Long term (current) use of systemic steroids; Z79.899 Other long term (current) drug therapy
CPT/HCPCS: 80053; 85025; 96365; 96366; 96375; 96376; J1100; J1200; J1750; J7030; J7040; J7050; J9999

== ENCOUNTER 2025-04-10 12:17 | Oncology outpatient (recurring) (ONCR) | payer MEDICAID, SELFPAY ==
[2025-04-10 12:40] LABS: Hematocrit 43.0 % (36-47); Hemoglobin 13.70 g/dL (11.27-16.99); Mean Corpuscular HGB Conc 31.9 g/dL (30-55); Mean Corpuscular Hemoglobin 24.9 pg (27-33); Mean Corpuscular Volume 78.0 fl (85-98); Nucleated Red Blood Cells % 0 %; Platelet Count 275 10^3/cmm (157-399); Red Blood Count 5.51 10^6/uL (3.85-5.65); White Blood Count 13.66 10^3/uL (3.29-11.43)
[2025-04-10 13:00] LABS: Alanine Aminotransferase 19 U/L (0-33); Albumin Level 4.1 g/dL (3.5-5.2); Alkaline Phosphatase 88 U/L (35-105); Anion Gap 16.3 (5-19); Aspartate Amino Transferase 14 U/L (0-32); Blood Urea Nitrogen 11 mg/dL (6-20); Calcium 9.1 mg/dL (8.5-10.5); Carbon Dioxide 26 mmol/L (22-29); Chloride 103 mmol/L (98-107); Ferritin 135 ng/mL (15-150); Globulin 2.7 g/dL (1.3-4.6); Glucose 127 mg/dL (65-115); Iron 39 ug/dL (37-145); Osmolality Calculated 293 mOsm/kg (285-295); Potassium 4.3 mmol/L (3.5-5.1); Sodium 141 mmol/L (136-145); Total Iron Binding Capacity 243 mcg/dl; Total Protein 6.8 g/dL (6.6-8.7); Unsaturated Iron Binding 204 ug/dL (112-347)
== END 2025-04-30 23:59 | disposition home or self-care (01) ==
PROVIDERS: Nurse Practitioner; PCP Nurse Practitioner Family; Visit Provider Nurse Practitioner
DX: E61.1 Iron deficiency (principal)
CPT/HCPCS: 36415; 80053; 82728; 83540; 83550; 85025